=== PATIENT | male | born 1975 | race Hispanic/Latino ===

== ENCOUNTER 2025-04-27 01:01 | Observation (INO) ==
[2025-04-27] MEDS: NITROGLYCERIN 0.4 MG TAB.SUBL SL ONE (01:42)
[2025-04-27 01:46] LABS: Basophils #(Absolute) Auto 0.1 (0.0-0.1); Eosinophils#(Absolute)Auto 0.4 (0.0-0.3); Eosinophils%(Percent) Auto 5.6 % (0.0-4.0); Granulocytes % - Auto 59.1 % (49.1-73.1); Granulocytes#(Absolute)- Auto 4.4 (2.0-6.2); Hematocrit 46.9 % (41.3-50.1); Mean Corpuscular Volume 89.8 fl (81.9-96.5); Monocytes #(Absolute)- Auto 0.7 (0.2-0.8); Platelet Count 208 K/uL (142-355); White Blood Count 7.4 K/uL (3.7-9.6)
--- NOTE | 2025-04-27 01:48 | Emergency Department Note ---
HPI - Chest Pain General Chief Complaint: Chest Pain Stated Complaint: sharp chest pain Time Seen by Provider: 04/27/25 01:24 Source: patient Mode of arrival: walk-in Limitations: no limitations History of Present Illness HPI narrative: This is a 50-year-old male who presents with chest pain that started approximately 12 AN, when he was doing some chores around the house. Patient states that he was cleaning, sweeping, mopping, etc. He states that it was a sharp pain on the left side of his chest that felt like pressure, and radiated down his left arm. He states that the pressure acutely worsened and tightness sat in in his chest. care home staff states they are familiar with the patient, and his color is much different than normal. Patient is ill-appearing. He denies any cardiac history. Patient does have hypertension and hyperlipidemia. He is morbidly obese. He is in moderate distress/discomfort. He has no other complaints. MD complaint: Reports chest pain, chest heaviness and chest discomfort Pertinent past history: Reports coronary artery disease; Denies prior [place] or [employer] Onset (ago): hour(s) (2) Timing of current episode: Reports constant and still present Prior episodes: No Onset: Reports during exertion Pain location: Reports left chest Pain radiation: Reports left arm Severity: severe Quality: Reports tightness, aching and heaviness Relieving factors: Reports nothing Exacerbating factors: Reports nothing Context: Denies recent illness, recent surgery or recent immobilization Associated symptoms: Denies nausea, vomiting, diaphoresis or dyspnea Treatment prior to arrival: Reports aspirin Risk Factors Coronary artery disease risk factors: Reports hyperlipidemia and hypertension Thoracic aortic dissection risk factors: Reports none Pulmonary embolism risk factors: Reports morbid obesity Related Data Home Medications Medication Instructions Recorded Confirmed aspirin 81 mg tablet,delayed 81 mg PO DAILY 12/25/24 0 04/27/25 release (Adult Aspirin Regimen) labetalol 300 mg tablet 300 mg PO Q12H 12/25/2404/03 rosuvastatin 20 mg tablet 20 mg PO DAILY 12/25/2404/03 chlorthalidone 50 mg tablet 50 mg PO DAILY 04/27/25 Allergies Allergy/AdvReac Type Severity Reaction Status Date / Time No Known Drug Allergies Allergy Verified 04/27/25 01:26 Review of Systems 2 Status of ROS 10 or more systems reviewed and unremark able except as noted in history and below Constitutional Denies: fever, chills or change in weight Eyes Denies: change in vision, blurry vision or blind spots Ears, nose, mouth, and throat Denies: throat pain, neck pain, throat swelling or difficulty swallowing Cardiovascular Reports: chest pain; Denies: palpitations, edema or swelling of feet/ankles Respiratory Denies: shortness of breath, cough, wheezing or stridor Gastrointestinal Denies: abdominal pain, nausea or vomiting Genitourinary Denies: painful urination, urinary frequency or urinary urgency Musculoskeletal Denies: back pain, neck pain, extremity pain or extremity swelling Integumentary/Breast Denies: rash, itching, redness, skin pain or skin tenderness Neurological Denies: headache, numbness in extremities, weakness in extremities or lack of coordination Psychiatric Denies: anxiety, mood swings, panic attacks or change in sleep pattern Endocrine Denies: excessive urination, excessive thirst, fatigue or cold intolerance Hematologic/Lymphatic Denies: easy bruising, easy bleeding or enlarged lymph nodes Allergic/Immunologic Denies: hives, throat swelling, tongue swelling or facial swelling Exam 2 Constitutional: abnormal general appearance (L.), distress noted (moderate), abnormal body habitus (obese) and no limitations Vital Signs - 24 hr 04/27/25 01:01 04/27/25 01:03 04/27/25 01:30 Temperature 97.3 F L Pulse Rate 88 81 Respiratory Rate 20 15 Blood Pressure 134/82 136/86 Pulse Oximetry 98 98 97 Oxygen Delivery Wi thod Room Air Nasal Can nula Room Air Room Air 04/27/25 01:42 04/27/25 01:50 04/27/25 01:52 Temperature Pulse Rate 76 Respiratory Rate 17 Blood Pressure 137/90 129/69 129/69 Pulse Oximetry 96 Oxygen Delivery Me thod Room Air 04/27/25 02:10 Temperature Pulse Rate 73 Respiratory Rate 19 Blood Pressure 101/59 Pulse Oximetry 97 [facility] HENMT: normocephalic, head/scalp atraumatic, hearing grossly normal bilaterally, external ears normal and external nose normal Eyes: PERRL, EOMs intact bilaterally, conjunctivae normal and no scleral icterus Neck/C-Spine: visual inspection normal and trachea midline Lymph: no lymphadenopathy noted and no lymphedema noted Chest: inspection of chest normal and palpation of chest normal Respiratory: breath sounds equal bilaterally, normal respiratory effort, clear to auscultation bilaterally, no wheezes, no rales and no retractions Cardiovascular: normal heart rate noted, regular rhythm noted, no gallop, no rub and no murmur Gastrointestinal: abdomen normal to inspection, abdomen soft to palpation and nontender to palpation Genitourinary: no CVA tenderness and bladder normal to palpation Back/Pelvis: spine normal to inspection, no thoracic spine tenderness, no lumbar spine tenderness, thoracic spine ROM normal and lumbar spine ROM normal Extremities: normal to inspection, normal to palpation and no tenderness Neurology: no movement abnormality noted, no focal motor deficit noted, no sensory deficits noted and speech normal Psychiatry: mental status grossly normal, thought process normal, cooperative and affect normal Skin: skin color normal, no rash, no lesions and no ecchymosis noted Image: Body (4 view): 1. Chest pain Course Course Hospital Course: Patient has chest pain with risk factors for ACS. Patient ill-appearing, though his labs, EKG and vital signs are stable. Patient admitted for observation for cardiac rule out due to her moderate risk of MACE. Vital Signs Vital signs: Vital Signs Temperature 97.3 F L 04/27/25 01:01 Pulse Rate 88 04/27/25 01:01 Respiratory Rate 20 04/27/25 01:01 Blood Pressure 134/82 04/27/25 01:01 Pulse Oximetry 98 04/27/25 01:01 Oxygen Delivery Method Room Air, Nasal Cannula 04/27/25 01:01 Temperature 97.7 F 04/27/25 04:16 Pulse Rate 56 L 04/27/25 04:16 Respiratory Rate 21 04/27/25 04:16 Blood Pressure 93/46 04/27/25 04:16 Pulse Oximetry 97 04/27/25 04:16 Oxygen Delivery Method Room Air 04/27/25 04:16 MDM - Chest Pain MDM Narrative Medical decision making narrative: Chest pain, ACS, PE, AMI, GERD HEART Score for Major Cardiac Events from [email or web address] on 04/27/2025 All calculations should be rechecked by clinician prior to use RESULT SUMMARY: 6 points Moderate Score (4-6 points) Risk of MACE of 12-16.6%. INPUTS: History > 2 = Highly suspicious EKG > 1 = Non-specific repolarization disturbance Age > 1 = 45-64 Risk factors > 2 = >= risk factors or history of atherosclerotic disease Initial troponin > 0 = <=ormal limit Differential Diagnosis Differential diagnosis: Likely fracture of rib, pneumothorax, stable angina, unstable angina pectoris, atypical chest pain, st elevation myocardial infarction, costochondritis and chest pain Medical Records Data Attestation: I reviewed the patient's medical records. Lab Data Attestation: I reviewed the patient's lab results. Labs: Lab Results 04/27/25 04/27/25 Range/Units 01:35 01:50 WBC 7.4 (3.7-9.6) K/uL RBC 5.2 (4.40-5.80) M/uL Hgb 15.8 (14.0-17.4) gm/dL Hct 46.9 (41.3-50.1) % MCV 89.8 (81.9-96.5) fl MCH 30.3 (27.6-33.7) pg MCHC 33.7 (33.0-35.7) g/dl RDW 13.8 (11.0-14.8) % Plt Count 208 (142-355) K/uL MPV 10.4 (6.0-10.4) fl Gran % 59.1 (49.1-73.1) % Lymph % (Auto) 25.3 (17.6-39.05) % Kimble % (Auto) 9.0 (4.5-10.7) % Eos % (Auto) 5.6 H (0.0-4.0) % Baso % (Auto) 1.0 (0.0-1.3) Lymph # (Auto) 1.9 (0.8-2.9) Kimble # (Auto) 0.7 (0.2-0.8) Eos # (Auto) 0.4 H (0.0-0.3) Baso # (Auto) 0.1 (0.0-0.1) Absolute Gran (auto) 4.4 (2.0-6.2) PT 13.1 (12.1-15.0) SECONDS PT Normal Control 13.7 INR 0.94 APTT 28.8 (23.9-36.7) SECONDS D-Dimer 220 (100-600) ng/mL Sodium 141 (136-145) mmol/L Potassium 2.7 L (3.6-5.2) mmol/L Chloride 105.0 (98-107) mmol/L Carbon Dioxide 28 (21-32) mmol/L Anion Gap 8.0 (4-14) mEq/L BUN 17 (7-18) mg/dL Creatinine 1.1 (0.6-1.3) mg/dL Estimated GFR 82.8 (>59.9) Glucose 153 H (70-110) mg/dL Calcium 8.4 L (8.5-10.1) mg/dL Magnesium 2.1 (1.8-2.4) mg/dL Total Bilirubin 0.40 (0.0-1.0) mg/dL AST 35 (15-37) U/L ALT 39 (30-65) U/L Alkaline Phosphatase 85 (50-136) U/L Troponin I High Sens 9.00 (4.0-60.4) ng/L B-Natriuretic Peptide 9.4 (0-100) pg/mL Total Protein 6.9 (6.4-8.2) g/dL Albumin 2.8 L (3.4-5.0) g/dL Urine Color Yellow (STRAW/YELL.) Urine Appearance Clear (CLEAR) Ur Specific [place]born 1.010 (1.001-1.035) Urine Protein Negative (NEGATIVE) Urine Glucose (UA) Normal (NORMAL) Urine Ketones Negative (NEGATIVE) Urine Occult Blood Negative (NEG - TRACE) Urine Nitrite Negative (NEGATIVE) Urine Bilirubin Negative (NEGATIVE) Urine Urobilinogen Normal (NORMAL) Ur Leukocyte Esterase Negative (NEGATIVE) Fluid pH 7.0 (5 - 9) Imaging Data Imaging ordered: Chest x-ray Attestation: I personally reviewed and interpreted this imaging study as follows: My impression: Chest x-ray: No acute disease. ECG Data Attestation: I personally reviewed and interpreted this ECG as follows: ECG interpretation date: 04/27/25 ECG interpretation time: 01:11 Interpretation: Normal sinus rhythm, normal Or equivocal axis, rate of [address] or T wave elevations, depressions, or inversions. Nonspecific IVCD. Core Measures AMI core measures followed: Yes (Aspirin taken prior to arrival.) Critical Care Time Critical Care Time Critical Care Time: Yes Total Critical Care Time: 90 Attestation: Spent 90 minutes of critical care time with this patient, exclusive of any procedures. Discharge Plan Discharge Patient Disposition: Admitted As Observation Condition: Stable Clinical Impression: Chest pain, Acute hypokalemia, Obesity, Hyperlipidemia Interventions: ED Discharge Assessment Last Done: 04/27/25 03:45 ED Discharge Vital Sign Last Done: 04/27/25 03:45 Emergency Department Charge Sheet Last Done: 04/27/25 03:45 Time of Disposition: 02:45 Discharge Date/Time: 04/27/25 03:45 PFSH PFS Medical History (Updated 04/27/25 @ 01:49 by Sakina Acevedo RN) Dyslipidemia HTN (hypertension) Surgical History (Updated 04/27/25 @ 01:49 by Sakina Acevedo RN) History of angioplasty History of cholecystectomy History of hernia repair History of ear surgery Social History Smoking status: never smoker Second hand tobacco smoke exposure: No Within the past year, how often did you have a drink containing alcohol: never Within the past year, how often did you have six or more drinks on one occasion: never Score interpretation: A score less than 4 is consistent with normal alcohol consumption. Non-prescribed substance use: denies use What is your current living situation: I presently have a place to live Problems where you live: no known problems In the past 12 months, utilities in danger of being shut off: no In past 12 months, lack of transportation kept you from medical appts, meetings, work, or getting things needed for daily living: No How hard is it for you to pay for the very basics like food, housing, medical care, and heating: decline to answer Past 12 mos, fear food will run out before able to buy more: never true In past 12 months, food didn't last until money to buy more: never true Are you following a diet prescribed by a doctor: No Are you following a special diet: No Do you want help finding or keeping work or a job: I do not need or want help Known occupational exposures/hazards: No Highest level of school completed/degree received: high school How many days of moderate to strenuous exercise, like a brisk walk, did you do in the last 7 days: decline to answer Caffeine: No How often does anyone, including family, friends and others, physically hurt you : never How often does anyone, including family, friends and others, insult or talk down to you: never How often does anyone, including family, friends and others, threaten you with harm: never How often does anyone, including family, friends and others, scream or curse at you: never Firearms in home: unknown Do you need help with ADLs: I don't need any help Due to a physical, mental, or emotional condition, do you have difficulty doing errands alone such as visiting a doctor's office or shopping: No Little interest or pleasure in doing things: not at all Feeling down, depressed, or hopeless: not at all Feel stressed/tense/nervous/anxious/difficulty sleeping: rather much Life stressor details: Current medical condition Due to disability, difficulty making decisions: No Do you think of yourself as: straight/heterosexual Gender Identity: male Are you currently sexually active: No service: No Procedures ED Procedure Instructions IV insertion P.o. meds x 1
[2025-04-27 01:56] LABS: INR 0.94
[2025-04-27 02:12] LABS: Potassium 2.7 mmol/L (3.6-5.2)
[2025-04-27] MEDS ORDERED: MORPHINE SULFATE 2 MG/ML CARTRIDGE IV PRN (02:37)
[2025-04-27] MEDS ORDERED: NITROGLYCERIN 0.4 MG TAB.SUBL (BOTTLE) SL PRN (02:37)
[2025-04-27] MEDS ORDERED: ACETAMINOPHEN 500 MG TABLET PO PRN (02:37)
[2025-04-27] MEDS ORDERED: LORazepam 2 MG/ML VIAL IVP PRN (02:37)
[2025-04-27] MEDS ORDERED: ONDANSETRON HCL/PF 4 MG/2 ML VIAL INJ PRN (02:37)
[2025-04-27] MEDS ORDERED: DOCUSATE SODIUM 100 MG CAPSULE PO PRN (02:37)
[2025-04-27] MEDS: POTASSIUM CHLORIDE 20 MEQ TAB.ER.PRT PO ONE ×2 (02:39→09:29)
[2025-04-27] MEDS: POTASSIUM CL 20 MEQ/100 ML SOL 20 MEQ/100 ML PIGGYBACK IV ONE (02:40)
[2025-04-27] MEDS: 0.9 % SODIUM CHLORIDE 500 ML IV ONE (03:00)
[2025-04-27] MEDS ORDERED: 0.9 % SODIUM CHLORIDE 500 ML IV ONE (03:02)
[2025-04-27 04:13] LABS: Urine Appearance CLEAR (CLEAR); Urine Blood NEGATIVE (NEG - TRACE); Urine Color YELLOW (STRAW/YELL.); Urine Urobilinogen Normal (NORMAL)
[2025-04-27] MEDS ORDERED: NON-FORMULARY MEDICATION 1 EACH (Rosuvastatin 20 mg tablet) PO SCH (09:00)
[2025-04-27] MEDS: ATORVASTATIN CALCIUM 40 MG TABLET PO SCH (09:08)
[2025-04-27] MEDS: FAMOTIDINE 20 MG TABLET PO SCH (09:08)
[2025-04-27] MEDS: ASPIRIN 81 MG TABLET.DR PO SCH (09:08)
[2025-04-27] MEDS: PANTOPRAZOLE SODIUM 40 MG TABLET.DR PO SCH (09:08)
[2025-04-27] MEDS: LABETALOL HCL 100 MG TABLET PO SCH (09:09)
--- NOTE | 2025-04-27 09:56 | History & Physical Report ---
H&P: HPI History of Present Illness Chief complaint: CHEST PAIN UNSPECIFIED, MORBID OBESITY, HYPERLIPID Narrative: This is a 50-year-old male who presents with chest pain that started approximately 12 AN, when he was doing some chores around the house. Patient states that he was cleaning, sweeping, mopping, etc. He states that it was a sharp pain on the left side of his chest that felt like pressure, and radiated down his left arm. He states that the pressure acutely worsened and tightness sat in in his chest. assisted staff states they are familiar with the patient, and his color is much different than normal. Patient is ill-appearing. He denies any cardiac history. Patient does have hypertension and hyperlipidemia. He is morbidly obese. He is in moderate distress/discomfort. He has no other complaints. Review of Systems Status of ROS 10 or more systems reviewed and unremark able except as noted in history and below Constitutional Denies: fever, chills, change in weight or fatigue Eyes Denies: change in vision, blurry vision or blind spots Ears, nose, mouth, and throat Denies: throat pain, neck pain, throat swelling or difficulty swallowing Cardiovascular Reports: chest pain; Denies: palpitations, edema, swelling of feet/ankles or shortness of breath with exertion Respiratory Denies: shortness of breath, cough, wheezing or stridor Gastrointestinal Denies: abdominal pain, nausea, vomiting or difficulty swallowing Genitourinary Denies: painful urination, urinary frequency or urinary urgency Musculoskeletal Denies: back pain, neck pain, extremity pain or extremity swelling Integumentary/Breast Denies: rash, itching, redness, skin pain or skin tenderness Neurological Denies: headache, numbness in extremities, weakness in extremities or lack of coordination Psychiatric Denies: anxiety, mood swings, panic attacks or change in sleep pattern Endocrine Denies: excessive urination, excessive thirst, fatigue or cold intolerance Hematologic/Lymphatic Denies: easy bruising, easy bleeding or enlarged lymph nodes Allergic/Immunologic Denies: hives, throat swelling, tongue swelling, facial swelling or wheezing [facility] Medical History (Updated 04/27/25 @ 17:00 by Missy Henson DO) Dyslipidemia HTN (hypertension) Anxiety about health Hypochondriacal disorder Morbid obesity with BMI of 50.0-59.9, adult Surgical History History of angioplasty History of cholecystectomy History of hernia repair History of ear surgery Social History Smoking status: never smoker Second hand tobacco smoke exposure: No Within the past year, how often did you have a drink containing alcohol: never Within the past year, how often did you have six or more drinks on one occasion: never Score interpretation: A score less than 4 is consistent with normal alcohol consumption. Non-prescribed substance use: denies use What is your current living situation: I presently have a place to live Problems where you live: no known problems In the past 12 months, utilities in danger of being shut off: no In past 12 months, lack of transportation kept you from medical appts, meetings, work, or getting things needed for daily living: No How hard is it for you to pay for the very basics like food, housing, medical care, and heating: decline to answer Past 12 mos, fear food will run out before able to buy more: never true In past 12 months, food didn't last until money to buy more: never true Are you following a diet prescribed by a doctor: No Are you following a special diet: No Do you want help finding or keeping work or a job: I do not need or want help Known occupational exposures/hazards: No Highest level of school completed/degree received: high school How many days of moderate to strenuous exercise, like a brisk walk, did you do in the last 7 days: decline to answer Caffeine: No How often does anyone, including family, friends and others, physically hurt you : never How often does anyone, including family, friends and others, insult or talk down to you: never How often does anyone, including family, friends and others, threaten you with harm: never How often does anyone, including family, friends and others, scream or curse at you: never Firearms in home: unknown Do you need help with ADLs: I don't need any help Due to a physical, mental, or emotional condition, do you have difficulty doing errands alone such as visiting a doctor's office or shopping: No Little interest or pleasure in doing things: not at all Feeling down, depressed, or hopeless: not at all Feel stressed/tense/nervous/anxious/difficulty sleeping: rather much Life stressor details: admits he is hypochondriac Due to disability, difficulty making decisions: No Do you think of yourself as: straight/heterosexual Gender Identity: male Are you currently sexually active: No service: No Meds Home Medications and Allergies Home Medications Medication Instructions Recorded Confirmed Type aspirin 81 mg tablet,delayed 81 mg PO DAILY 12/25/24 0 04/27/25 History release (Adult Aspirin Regimen) labetalol 300 mg tablet 300 mg PO Q12H 12/25/2404/03 History rosuvastatin 20 mg tablet 20 mg PO DAILY 12/25/2404/03 History chlorthalidone 50 mg tablet 50 mg PO DAILY 04/27/25 History Allergies Allergy/AdvReac Type Severity Reaction Status Date / Time No Known Drug Allergies Allergy Verified 04/27/25 01:26 Exam Constitutional: abnormal general appearance (L.), distress noted (moderate), abnormal body habitus (obese) and no limitations Vital Signs - 24 hr 04/27/25 01:01 04/27/25 01:03 04/27/25 01:30 Temperature 97.3 F L Pulse Rate 88 81 Pulse Rate [Bilate ral] Respiratory Rate 20 15 Blood Pressure 134/82 136/86 Blood Pressure [Ri ght Arm] Pulse Oximetry 98 98 97 Oxygen Delivery Me thod Room Air Nasal [place] n[place] Room Air Room Air 04/27/25 01:42 04/27/25 01:50 04/27/25 01:52 Temperature Pulse Rate 76 Pulse Rate [Bilate ral] Respiratory Rate 17 Blood Pressure 137/90 129/69 129/69 Blood Pressure [Ri ght Arm] Pulse Oximetry 96 Oxygen Delivery Me thod Room Air 04/27/25 02:10 04/27/25 03:00 04/27/25 03:45 Temperature Pulse Rate 73 66 64 Pulse Rate [Bilate ral] Respiratory Rate 19 19 21 Blood Pressure 101/59 111/61 109/70 Blood Pressure [Ri ght Arm] Pulse Oximetry 97 96 97 Oxygen Delivery Me thod Room Air Room Air Room Air 04/27/25 03:45 04/27/25 03:48 04/27/25 04:16 Temperature 97.7 F 97.7 F Pulse Rate 64 Pulse Rate [Bilate ral] 56 L Respiratory Rate 21 21 Blood Pressure 109/70 Blood Pressure [Ri ght Arm] 93/46 Pulse Oximetry 97 97 Oxygen Delivery Me thod Room Air Room Air 04/27/25 07:48 Temperature 98.1 F Pulse Rate Pulse Rate [Bilate ral] 59 L Respiratory Rate 16 Blood Pressure Blood Pressure [Ri ght Arm] 121/76 Pulse Oximetry 98 Oxygen Delivery Me thod Room Air HENMT: normocephalic, head/scalp atraumatic, hearing grossly normal bilater ally, external ears normal, external nose normal, oral mucous membranes abnormal and dentition abnormal Eyes: PERRL, EOMs intact bilaterally, conjunctivae normal, no scleral icterus, papilledema noted and periorbital findings normal Neck/C-Spine: visual inspection normal, trachea midline, cervical spine nontender, abnormal cervical ROM noted, supple, no meningeal signs, thyroid normal and no carotid bruits Lymph: no lymphadenopathy noted and no lymphedema noted Chest: inspection of chest normal and palpation of chest normal Respiratory: breath sounds equal bilaterally, normal respiratory effort, clear to auscultation bilaterally, no wheezes, no rales and no retractions Cardiovascular: normal heart rate noted, regular rhythm noted, no gallop, no rub, no murmur, no JVD, no clicks, peripheral pulses as noted: and no bruits noted Gastrointestinal: abdomen abnormal to inspection (obese), abdomen soft to palpation, nontender to palpation, nontender to percussion, nondistended, norm oactive bowel sounds, hepatosplenomegaly noted, no masses, no pulsatile mass, no ascites and no hernia Genitourinary: no CVA tenderness and bladder normal to palpation Back/Pelvis: spine normal to inspection, no thoracic spine tenderness, no lumbar spine tenderness, thoracic spine ROM normal and lumbar spine ROM normal Extremities: normal to inspection, normal to palpation and no tenderness 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, no movement abnormality noted, no focal motor deficit noted, sensory deficit noted, gait abnormality noted, speech normal, coordination normal and GCS normal Psychiatry: mental status grossly normal, oriented x3, thought process normal, cooperative, affect abnormality noted (anxious), psychomotor activity normal and memory normal Feel stressed/tense/nervous/anxious/difficulty sleeping: rather much Life stressor details: admits he is hypochondriac Skin: skin color normal, no rash, no lesions, no ecchymosis noted, wound(s) noted (numerous cat scratches on bilateral sheens) Reports (superficial), no lacerations, skin turgor normal, no jaundice, no petechiae, no mottling, nails abnormality noted and alopecia noted Assessment and Plan Assessment and Plan (1) Morbid obesity with BMI of 50.0-59.9, adult: Code(s): E66.01 - Morbid (severe) obesity due to excess calories; Z68.43 - Body mass index [BMI] 50.0-59.9, adult (2) Dyslipidemia: Code(s): E78.5 - Hyperlipidemia, unspecified (3) HTN (hypertension): Qualifiers: Hypertension type: primary hypertension Qualified Code(s): I10 - Essential (primary) hypertension Code(s): I10 - Essential (primary) hypertension (4) Chest pain: Qualifiers: Chest pain type: other chest pain Qualified Code(s): R07.89 - Other chest pain Code(s): R07.9 - Chest pain, unspecified (5) Hypochondriacal disorder: Code(s): F45.20 - Hypochondriacal disorder, unspecified (6) Anxiety about health: Code(s): R45.89 - Other symptoms and signs involving emotional state (7) Bradycardia: Code(s): R00.1 - Bradycardia, unspecified Plan cardiac monitoring serial tropnins EKG educate on diet and weight loss needs avoiding cats and risk of infection with cat scratches nuclear stress test as an outpatient follow up PCP in 2-3 days list given so patient can decide on a new PCP as he cannot continue seeing Partha as he is only in office 2 days per week resume home medications aspirin 81 mg daily Results Labs Labs: CBC 04/27/25 Range/Units 01:35 WBC 7.4 (3.7-9.6) K/uL RBC 5.2 (4.40-5.80) M/uL Hgb 15.8 (14.0-17.4) gm/dL Hct 46.9 (41.3-50.1) % Plt Count 208 (142-355) K/uL Gran % 59.1 (49.1-73.1) % Lymph % (Auto) 25.3 (17.6-39.05) % [place] % (Auto) 9.0 (4.5-10.7) % Eos % (Auto) 5.6 H (0.0-4.0) % Baso % (Auto) 1.0 (0.0-1.3) Lymph # (Auto) 1.9 (0.8-2.9) [place] # (Auto) 0.7 (0.2-0.8) Eos # (Auto) 0.4 H (0.0-0.3) Baso # (Auto) 0.1 (0.0-0.1) Absolute Gran (auto) 4.4 (2.0-6.2) CMP 04/27/25 01:35 Sodium 141 Potassium 2.7 L Chloride 105.0 Carbon Dioxide 28 BUN 17 Creatinine 1.1 Glucose 153 H Calcium 8.4 L Liver Function 04/27/25 Range/Units 01:35 Total Bilirubin 0.40 (0.0-1.0) mg/dL AST 35 (15-37) U/L ALT 39 (30-65) U/L Alkaline Phosphatase 85 (50-136) U/L Albumin 2.8 L (3.4-5.0) g/dL Urine 04/27/25 01:50 Urine Color Yellow Urine Appearance Clear Ur Specific [place] 1.010 Urine Protein Negative Urine Glucose (UA) Normal Pulse Oximetry Attestation: I have reviewed the pertinent pulse oximetry results. ECG Attestation: I have reviewed the pertinent ECG results. Prior ECG tracings: available for review Imaging Imaging ordered: Chest x-ray Radiologist's impression: chest pain chest pain ; Hx of irregular heartbeat COMPARISON: 01/07/2025 FINDINGS: The cardiomediastinal silhouette is stable. Possible congestion. No focal consolidation. No pneumothorax or effusion. No acute osseous abnormality. IMPRESSION: Possible congestion.
[2025-04-27 10:20] LABS: Potassium 2.9 mmol/L (3.6-5.2)
[2025-04-27 10:47] LABS: Hematocrit 47.8 % (41.3-50.1); Mean Corpuscular Volume 92.8 fl (81.9-96.5)
[2025-04-27 10:48] LABS: Platelet Count 191 K/uL (142-355)
[2025-04-27 10:49] LABS: Basophils%(Percent) Auto 0.5 (0.0-1.3); Eosinophils%(Percent) Auto 5.9 % (0.0-4.0); Granulocytes % - Auto 53.9 % (49.1-73.1); Granulocytes#(Absolute)- Auto 4.3 (2.0-6.2); Monocytes #(Absolute)- Auto 0.7 (0.2-0.8); Monocytes %(Percent)- Auto 8.1 % (4.5-10.7)
[2025-04-28 03:37] VITALS: PULSE 67; TEMP 98.3
[2025-04-28 05:09] LABS: Basophils #(Absolute) Auto 0.1 (0.0-0.1); Basophils%(Percent) Auto 1.2 (0.0-1.3); Eosinophils#(Absolute)Auto 0.4 (0.0-0.3); Eosinophils%(Percent) Auto 5.5 % (0.0-4.0); Granulocytes % - Auto 61.1 % (49.1-73.1); Granulocytes#(Absolute)- Auto 4.3 (2.0-6.2); Hematocrit 44.8 % (41.3-50.1); Mean Corpuscular Volume 89.1 fl (81.9-96.5); Monocytes #(Absolute)- Auto 0.4 (0.2-0.8); Monocytes %(Percent)- Auto 6.2 % (4.5-10.7); Platelet Count 179 K/uL (142-355); White Blood Count 7.1 K/uL (3.7-9.6)
[2025-04-28 05:24] LABS: Potassium 2.7 mmol/L (3.6-5.2)
[2025-04-28 07:49] VITALS: BP 133/81; RESP 20
[2025-04-28] MEDS: POTASSIUM CHLORIDE 20 MEQ TAB.ER.PRT PO ONE (09:11)
--- NOTE | 2025-04-28 09:17 | Discharge Summary ---
DS: Providers Provider Date of admission: 04/27/25 02:37 Primary care physician: Darnell Salinas Attending physician on discharge: Mee Connolly Discharging clinician: Mee Connolly Anticipated date of discharge: 04/28/25 DS: Diagnosis Discharge Diagnosis (1) Morbid obesity with BMI of 50.0-59.9, adult: (2) Dyslipidemia: (3) HTN (hypertension): Qualifiers: Hypertension type: primary hypertension Qualified Code(s): I10 - Essential (primary) hypertension (4) Chest pain: Qualifiers: Chest pain type: other chest pain Qualified Code(s): R07.89 - Other chest pain (5) Hypochondriacal disorder: (6) Anxiety about health: (7) Bradycardia: Plan No new complaints or symptoms. Troponin and EKG negative. Patient will be discharged home with Potassium x 5 days. He will follow up with PCP. He will schedule out patient stress test. DS: Summary Hospital Course Hospital Course: Patient has chest pain with risk factors for ACS. Patient ill-appearing, though his labs, EKG and vital signs are stable. Patient admitted for observation for cardiac rule out due to her moderate risk of MACE. All tests negative for ACS. No new symptoms during stay. Patient states he does have some acid reflux from time to time. Status at Discharge Functional status at discharge: independent ambulation Overall status at discharge: patient is back to baseline Time Spent with Patient Time attestation: Total time spent providing and/or coordinating discharge services: 40 Exam Constitutional: normal general appearance, no apparent distress, average body habitus (morbid obesity) and no limitations Vital Signs - 24 hr 04/27/25 11:42 04/27/25 15:41 04/27/25 19:16 Temperature 99.0 F 97.6 F 97.6 F Pulse Rate [Bilate ral] 74 69 62 Respiratory Rate 20 16 19 Blood Pressure [Ri ght Arm] 129/84 119/71 108/68 Pulse Oximetry 94 L 96 98 Oxygen Delivery Me thod Room Air Room Air Room Air 04/27/25 23:48 04/28/25 03:36 04/28/25 07:48 Temperature 97.7 F 98.3 F 98.3 F Pulse Rate [Bilate ral] 66 67 67 Respiratory Rate 21 22 20 Blood Pressure [Ri ght Arm] 128/72 132/82 133/81 Pulse Oximetry 99 97 98 Oxygen Delivery Me thod Room Air Room Air Room Air HENMT: normocephalic, head/scalp atraumatic, hearing grossly normal bilaterally and external ears normal Eyes: PERRL, EOMs intact bilaterally, conjunctivae normal, no scleral icterus and no nystagmus Neck/C-Spine: visual inspection normal, trachea midline and cervical spine nontender Lymph: no lymphadenopathy noted and no lymphedema noted Chest: inspection of chest normal Respiratory: breath sounds equal bilaterally, normal respiratory effort, clear to auscultation bilaterally, no wheezes, no rales, no retractions and no use of accessory muscles Cardiovascular: normal heart rate noted, regular rhythm noted, no gallop, no rub, no murmur, no JVD and no clicks Gastrointestinal: abdomen normal to inspection, abdomen soft to palpation, nontender to palpation, nontender to percussion, nondistended, normoactive bowel sounds and no ascites Genitourinary: deferred Back/Pelvis: spine normal to inspection, no thoracic spine tenderness, no lumbar spine tenderness, thoracic spine ROM normal and lumbar spine ROM normal Extremities: normal to inspection, normal to palpation and no tenderness 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, no movement abnormality noted, no focal motor deficit noted, no sensory deficits noted, gait normal, speech normal, coordination normal and GCS normal Psychiatry: mental status grossly normal, oriented x3, thought process normal, cooperative, affect normal, psychomotor activity normal and memory normal Skin: skin color normal, no rash, no lesions, no ecchymosis noted, no wounds (numerous cat scratches on bilateral sheens), no lacerations, skin turgor normal, no jaundice, no petechiae and no mottling DS: Data Data Completed and Pending Labs on day of discharge: Labs from last 24 hours 04/28/25 04/27/25 04/27/25 05:05 16:15 10:00 WBC 7.1 8.0 RBC 5.0 5.2 Hgb 15.2 15.8 Hct 44.8 47.8 MCV 89.1 92.8 MCH 30.2 30.6 MCHC 33.9 33.0 RDW 13.9 14.2 Plt Count 179 191 MPV 10.0 10.5 H Gran % 61.1 53.9 Lymph % (Auto) 26.0 31.6 [place] % (Auto) 6.2 8.1 Eos % (Auto) 5.5 H 5.9 H Baso % (Auto) 1.2 0.5 Lymph # (Auto) 1.9 2.5 [place] # (Auto) 0.4 0.7 Eos # (Auto) 0.4 H 0.0 Baso # (Auto) 0.1 0.0 Absolute Gran (auto) 4.3 4.3 Sodium 140 140 Potassium 2.7 L 2.9 L Chloride 102.0 104.0 Carbon Dioxide 28 28 Anion Gap 10.0 8.0 BUN 15 17 Creatinine 1.1 1.0 Estimated GFR 82.8 92.8 Glucose 122 H 104 Calcium 8.8 8.3 L Magnesium 2.2 Troponin I High Sens 8.10 7.20 Discharge Plan Discharge Disposition: Home, Self-Care Condition: Stable Discharge Medications: New potassium chloride [Klor-Con M20] 20 mEq tablet,ER particles/crystals 20 meq PO DAILY Qty: 7 0RF Continued chlorthalidone 50 mg tablet 50 mg PO DAILY Patient Comments: TAKE 1 TABLET BY MOUTH ONCE DAILY aspirin [Adult Aspirin Regimen] 81 mg tablet,delayed release (DR/EC) 81 mg PO DAILY rosuvastatin 20 mg tablet 20 mg PO DAILY Patient Comments: TAKE 1 TABLET BY MOUTH ONCE DAILY labetalol 300 mg tablet 300 mg PO Q12H Patient Comments: TAKE 1 TABLET BY MOUTH TWICE DAILY Discharge Orders: Discharge Order (Routine); Ordered 04/28/25 Ordered By: Mee Connolly Activity: increase activity as tolerated and resume usual activities as tolerated Diet: advance to your usual diet Plan of Treatment: Follow up with PCP within 1 week. Start PO potassium. Keep appointment for outpatient stress test and sleep study. Patient Instructions: Potassium Content of Foods List (GEN) Forms: Portal/Health Info Access Inst Follow-Ups: Darnell Salinas [Primary Care Provider]
== END 2025-04-28 10:07 | disposition home or self-care (01) ==
LOC: MS 01:01 → ED 01:01 → MS 03:45
PROVIDERS: ADMIT Physician Assistant; ATTEND Family Medicine